=== PATIENT | female | born 1970 | race Caucasian/White ===

== ENCOUNTER 2018-02-04 21:07 | Emergency (ER) | payer OTHER ==
[2018-02-04] MEDS ORDERED: ASPIRIN 81 MG TABLET, CHEWABLE PO ONE (22:07)
--- NOTE | 2018-02-04 22:09 | ER Document Report ---
ED Medical Screen (RME) - General Chief Complaint: Chest Pain Stated Complaint: CHEST PAIN Time Seen by Provider: 02/04/18 22:07 Mode of Arrival: Ambulatory Information source: Patient Notes: Patient is a 47-year-old female who presents with chief complaint of chest pressure. Patient reports the pain has been intermittent over the last 36 hours. Patient reports that he first started after having a argument with her roommate, patient thought it was just anxiety. Patient did call EMS yesterday afternoon at which point he came to her house evaluated her and she opted to not be transported to the emergency department. Patient reports that today the chest pain has been more persistent and higher in intensity. Patient describes the pain as a chest pressure with radiation to her right arm with associated nausea and diaphoresis. Patient reports that she always feels short of breath. Patient does have a history of a STEMI approximately 1-2 years ago. 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 Exam: Lung sounds clear to auscultation bilaterally. No tenderness on palpation to chest wall. Heart sounds S1-S2 present no ectopy noted. He just put a whole protocol for I have greeted and performed a rapid initial assessment of this patient. A comprehensive ED assessment and evaluation of the patient, analysis of test results and completion of the medical decision making process will be conducted by additional ED providers. Dictation of this chart was performed using voice recognition software; therefore, there may be some unintended grammatical errors. TRAVEL OUTSIDE OF THE [place] IN LAST 30 DAYS: No - Related Data Allergies/Adverse Reactions: acetaminophen [From Tylenol] Allergy (Verified 02/04/18 21:13) ciprofloxacin [From Cipro] Allergy (Verified 02/04/18 21:13) doxycycline Allergy (Verified 02/04/18 21:13) erythromycin base Allergy (Verified 02/04/18 21:13) Penicillins Allergy (Verified 02/04/18 21:13)
--- NOTE | 2018-02-04 22:28 | EKG REPORT ---
SEVERITY:- ABNORMAL ECG - SINUS RHYTHM PAIRED VENTRICULAR PREMATURE COMPLEXES NONSPECIFIC INTRAVENTRICULAR CONDUCTION DELAY : Confirmed by: Cesilia Shepherd MD 04-Feb-2018 22:27:23
--- NOTE | 2018-02-04 22:38 | RADIOLOGY REPORT (SQ) ---
EXAM DESCRIPTION: CHEST SINGLE VIEW COMPLETED DATE/TIME: 02/04/2018 10:20 pm REASON FOR STUDY: chest pressure COMPARISON: None. EXAM PARAMETERS: NUMBER OF VIEWS: One view. TECHNIQUE: Single frontal radiographic view of the chest acquired. RADIATION DOSE: NA LIMITATIONS: None. FINDINGS: LUNGS AND PLEURA: No opacities, masses or pneumothorax. No pleural effusion. MEDIASTINUM AND HILAR STRUCTURES: No masses. Contour normal. HEART AND VASCULAR STRUCTURES: Heart size is borderline. There is no evidence of pulmonary edema. BONES: No acute findings. HARDWARE: None in the chest. OTHER: No other significant finding. IMPRESSION: Borderline cardiomegaly without pulmonary edema. TECHNICAL DOCUMENTATION: JOB ID: [id number] [employer]- All Rights Reserved Reading location - IP/workstation name: [email or web address]
[2018-02-04 23:20] LABS: ABSOLUTE BASOPHILS # (AUTO) 0.1 10^3/uL (0.0-0.2); ABSOLUTE EOSINOPHILS # (AUTO) 0.2 10^3/uL (0.0-0.6); ABSOLUTE LYMPHOCYTES (AUTO) 1.7 10^3/uL (0.5-4.7); ABSOLUTE MONOCYTES (AUTO) 0.4 10^3/uL (0.1-1.4); BASOPHILS % (AUTO) 0.7 % (0-2); EOSINOPHILS % (AUTO) 3.1 % (0-6); HEMATOCRIT 38.5 % (36.0-47.0); HEMOGLOBIN 12.9 g/dL (12.0-15.5); MEAN CORPUSCULAR HEMOGLOBIN 28.9 pg (27.0-33.4); MEAN CORPUSCULAR HGB CONC 33.5 g/dL (32.0-36.0); MEAN CORPUSCULAR VOLUME 86 fl (80-97); MONOCYTES % (AUTO) 5.4 % (3-13); PLATELET COUNT 165 10^3/uL (150-450); RED BLOOD COUNT 4.47 10^6/uL (3.72-5.28); RED CELL DISTRIBUTION WIDTH 14.7 % (11.5-14.0); SEGMENTED NEUTROPHILS % (AUTO) 67.8 % (42-78); TOTAL CELLS COUNTED % (AUTO) 100 %; WHITE BLOOD COUNT 7.4 10^3/uL (4.0-10.5)
[2018-02-04 23:34] LABS: ALANINE AMINOTRANSFERASE 27 U/L (9-52); ALBUMIN 3.9 g/dL (3.5-5.0); ALKALINE PHOSPHATASE 83 U/L (38-126); ANION GAP 13 (5-19); ASPARTATE AMINO TRANSFERASE 34 U/L (14-36); BILIRUBIN,DIRECT 0.3 mg/dL (0.0-0.4); BILIRUBIN,TOTAL 0.6 mg/dL (0.2-1.3); BLOOD UREA NITROGEN 15 mg/dL (7-20); CARBON DIOXIDE 23 mmol/L (22-30); CHLORIDE 104 mmol/L (98-107); CREATINE KINASE 151 U/L (30-135); GLUCOSE 191 mg/dL (75-110); POTASSIUM 4.4 mmol/L (3.6-5.0); SODIUM 140.3 mmol/L (137-145); TOTAL PROTEIN 7.3 g/dL (6.3-8.2)
[2018-02-04 23:44] LABS: CREATINE KINASE MB 4.42 ng/mL (<4.55)
[2018-02-04 23:51] LABS: TROPONIN I 0.873 ng/mL
--- NOTE | 2018-02-05 00:02 | ER Document Report ---
ED General - General Mode of Arrival: Ambulatory TRAVEL OUTSIDE OF THE [place] IN LAST 30 DAYS: No <ALE LION - Last Filed: 02/05/18 03:12> <SUSAN GALLEGOS - Last Filed: 02/05/18 12:36> - General Chief Complaint: Chest Pain Stated Complaint: CHEST PAIN Time Seen by Provider: 02/04/18 22:07 Notes: Patient is a 47-year-old female who presents with complaint of chest pain. Chest pain is substernal. She does have some radiation into her left shoulder and into her back. Said this started yesterday if she got an argument with a friend on the phone. Pain continued throughout the night and into today and therefore she came to the ER. She does have previous history of NV in 2003. She had a heart cath at that time. This was done at [facility] and was [facility]. She moved here several months ago. She does not have a doctor since she moved here. She does have diabetes. She has gained more weight. She says she is still having some chest pain. Cardiac enzymes and EKG were done upfront. Her troponin is elevated. EKG shows some PVCs. Patient says she does have a history of intermittent bigeminy which is normal for her. She denies any recent bleeding. No abdominal pain. No difficulty breathing. No other complaints at this time. (ALE LION) - Related Data Allergies/Adverse Reactions: acetaminophen [From Tylenol] Allergy (Verified 02/04/18 21:13) ciprofloxacin [From Cipro] Allergy (Verified 02/04/18 21:13) doxycycline Allergy (Verified 02/04/18 21:13) erythromycin base Allergy (Verified 02/04/18 21:13) Penicillins Allergy (Verified 02/04/18 21:13) Past Medical History - General Information source: Patient - Social History Smoking Status: Former Smoker Frequency of alcohol use: None Drug Abuse: None Family History: Reviewed & Not Pertinent Patient has suicidal ideation: No Patient has homicidal ideation: No Renal/ Medical History: Denies: Hx Peritoneal Dialysis <ALE LION - Last Filed: 02/05/18 03:12> Review of Systems <ALE LION - Last Filed: 02/05/18 03:12> <SUSAN GALLEGOS - Last Filed: 02/05/18 12:36> - Review of Systems Notes: My Normal Review Basic REVIEW OF SYSTEMS: CONSTITUTIONAL : Denies fever, chills, or sweats. Denies recent illness. EENT: Denies eye, ear, throat, or mouth pain or symptoms. Denies nasal or sinus congestion. CARDIOVASCULAR: has chest pain. RESPIRATORY: Denies cough, cold, or chest congestion. Denies shortness of breath, difficulty breathing, or wheezing. GASTROINTESTINAL: Denies abdominal pain. Denies nausea, vomiting, or diarrhea. Denies constipation. Last BM: MUSCULOSKELETAL: Denies neck or back pain or joint pain or swelling. SKIN: Denies rash or skin lesions. NEUROLOGICAL: Denies altered mental status or loss of consciousness. Denies headache. Denies weakness or paralysis or loss of use of either side. Denies problems with gait or speech. Denies sensory or motor loss. ALL OTHER SYSTEMS REVIEWED AND NEGATIVE. (ALE LION) Physical Exam <ALE LION - Last Filed: 02/05/18 03:12> <SUSAN GALLEGOS - Last Filed: 02/05/18 12:36> - Vital signs Vitals: BP 157/73 H 02/05/18 00:06 - Notes Notes: General Appearance: Well nourished, alert, cooperative, no acute distress, no obvious discomfort. Well appearing. Vitals: reviewed, See vital signs table. Head: no swelling or tenderness to the head Eyes: PERRL, EOMI, Conjuctiva clear Mouth: No decreasd moisture Neck: Supple, no neck tenderness, No neck swelling Lungs: No wheezing, No rales, No rhonci, No accessory muscle use, good air exchange bilaterally. Heart: Normal rate, Regular rythm, No murmur, no rub Abdomen: Normal BS, soft, No rigidity, No abdominal tenderness, No guarding, no rebound, no abdominal masses, no organomegaly Extremities: strength 5/5 in all extremities, good pulses in all extremities, no swelling or tenderness in the extremities, no edema. Skin: warm, dry, appropriate color, no rash Neuro: speech clear, oriented x 3, normal affect, responds appropriately to questions. (ALE LION) Course - Laboratory Result Diagrams: 02/04/18 23:06 02/04/18 23:06 <ALE LION - Last Filed: 02/05/18 03:12> - Laboratory Result Diagrams: 02/04/18 23:06 02/04/18 23:06 <SUSAN GALLEGOS - Last Filed: 02/05/18 12:36> - Re-evaluation Re-evalutation: 02/05/18 03:06 I initially called [facility]. They are on diversion and said they cannot take the patient. I therefore called [facility] spoke with Dr. James Bermudez agrees to accept the patient and the patient will be placed on a waiting list. Patient currently is pain-free and doing well. 02/05/18 03:12 (ALE LION) 02/05/18 12:35 Patient is stable at this time for transport. Repeat EKG was performed which showed bigeminy. Patient reports that she knows she has bigeminy and has had it for years. She is sitting upright. Currently not in bigeminy. Heart rate in the 60s. In my opinion patient is stable for transport at this time. ( SUSAN GALLEGOS) - Vital Signs Vital signs: Temp Pulse Resp BP Pulse Ox 98.4 F 12 149/88 H 97 02/05/18 10:01 02/05/18 11:01 02/05/18 11:00 02/05/18 11:01 - Laboratory Laboratory results interpreted by me: 02/04/18 02/04/18 02/04/18 23:06 23:06 23:06 RDW 14.7 H Glucose 191 H Creatine Kinase 151 H NT-Pro-B Natriuret Pep 1250 H - EKG Interpretation by Me Additional EKG results interpreted by me: 02/05/18 00:01 EKG is reviewed and interpreted by me. EKG shows sinus rhythm with rate of [address] segment elevation or depression. No ischemic T-wave inversions. Patient does have multiple PVCs. VT interval is within normal range. QRS duration QTc intervals are prolonged. Old EKG for comparison is unavailable at this time. 02/05/18 03:12 EKG #2 is reviewed and interpreted by me. EKG sinus rhythm with rate 54 bpm. No PVCs. No ST segment elevation or depression. No ischemic T-wave inversions. VT interval is within normal range. QRS duration QTc intervals are prolonged. (ALE LION) Discharge <ALE LION - Last Filed: 02/05/18 03:12> <SUSAN GALLEGOS - Last Filed: 02/05/18 12:36> - Discharge Clinical Impression: NSTEMI (non-ST elevated myocardial infarction) Condition: Stable Disposition: [facility]
[2018-02-05] MEDS ORDERED: NITROGLYCERIN 2% OINTMENT 1 GM PACKET TP ONE (00:12)
[2018-02-05] MEDS: ENOXAPARIN SODIUM INJ 150 MG/1 ML DISP.SYRIN SUBCUT SCH ×2 (00:40→11:02)
[2018-02-05] MEDS ORDERED: MORPHINE SULFATE 10 MG/ML INJ IV ONE (02:18)
[2018-02-05 13:33] VITALS: BP 162/79
--- NOTE | 2018-02-05 13:44 | EKG REPORT ---
SEVERITY:- ABNORMAL ECG - SINUS RHYTHM VENTRICULAR BIGEMINY NONSPECIFIC T ABNORMALITIES, LATERAL LEADS : Confirmed by: Cesilia Shepherd MD 05-Feb-2018 13:43:51
--- NOTE | 2018-02-05 13:45 | EKG REPORT ---
SEVERITY:- ABNORMAL ECG - SINUS RHYTHM NONSPECIFIC INTRAVENTRICULAR CONDUCTION DELAY : Confirmed by: Cesilia Shepherd MD 05-Feb-2018 13:43:54
== END 2018-02-05 12:23 | disposition short-term general hospital (02) ==
LOC: ER 21:07
DX: I21.4 Non-ST elevation (NSTEMI) myocardial infarction (principal); R07.9 Chest pain, unspecified; I25.2 Old myocardial infarction
CPT/HCPCS: 93005 ×2; 99285; 96372; 96374; 36415; 82553; 82550; 85025; 80053; 84484; 83880; 71045; 93010 ×2; J3490; J2270

== ENCOUNTER 2018-10-15 09:52 | Emergency (ER) | payer OTHER ==
--- NOTE | 2018-10-15 11:19 | ER Document Report ---
ED Fall - General Chief Complaint: Fall Injury Stated Complaint: FALL Time Seen by Provider: 10/15/18 11:01 Mode of Arrival: Ambulatory Information source: Patient Notes: 48-year-old female presents to ED for complaint of pain to her right lateral ribs and hip since Sunday. She states the ribs are much more painful than the hip. She states on Sunday she fell off her daughter's porch landing on the side. There is gross bruising noted to the right hip. Patient is on Plavix. Patient states she had a heart attack last year with a heart cath but no stents they told her there was no blockage that is while she is on Plavix. Is alert oriented respirations regular and unlabored speaking in full sentences walks with a even steady gait but does complain of a lot of pain to the right lateral and posterior ribs. TRAVEL OUTSIDE OF THE [place] IN LAST 30 DAYS: No - HPI Occurred: Other - Sunday Where: Outdoors, Other - Daughter's house Context: Fell from height - Fell off the porch when she slipped in the wet porch Associated symptoms: None Location of injury/pain: Other - Right lateral and posterior ribs Quality of pain: Sharp Severity: Moderate Pain Level: 3 - Related data Allergies/Adverse Reactions: acetaminophen [From Tylenol] Allergy (Verified 10/15/18 09:53) ciprofloxacin [From Cipro] Allergy (Verified 10/15/18 09:53) doxycycline Allergy (Verified 10/15/18 09:53) erythromycin base Allergy (Verified 10/15/18 09:53) Penicillins Allergy (Verified 10/15/18 09:53) Past Medical History - General Information source: Patient - Social History Smoking Status: Former Smoker Frequency of alcohol use: None Drug Abuse: None Lives with: Family Family History: Reviewed & Not Pertinent Patient has suicidal ideation: No Patient has homicidal ideation: No - Past Medical History Cardiac Medical History: Reports: Hx Heart Attack, Hx Hypercholesterolemia, Hx Hypertension Pulmonary Medical History: Reports: Hx COPD, Other - Sarcoidosis EENT Medical History: Reports: None Neurological Medical History: Reports: None, Other - Neuropathy, vertigo Endocrine Medical History: Reports: Hx Diabetes Mellitus Type 2 Renal/ Medical History: Reports: None Malignancy Medical History: Reports: None GI Medical History: Reports: None Musculoskeletal Medical History: Reports None Skin Medical History: Reports None Psychiatric Medical History: Reports: Hx Depression Traumatic Medical History: Reports: None Infectious Medical History: Reports: None Past Surgical History: Reports: Hx Appendectomy, Hx Cardiac Catheterization, Hx Section, Hx Cholecystectomy - Immunizations Immunizations up to date: Yes Hx Diphtheria, Pertussis, Tetanus Vaccination: Yes Review of Systems - Review of Systems Constitutional: No symptoms reported EENT: No symptoms reported Cardiovascular: No symptoms reported Respiratory: Other - Right lateral and posterior rib pain after a fall on Sunday Gastrointestinal: No symptoms reported Genitourinary: No symptoms reported Female Genitourinary: No symptoms reported Musculoskeletal: Other - Right hip pain and bruising after a fall on Sunday Skin: No symptoms reported Hematologic/Lymphatic: No symptoms reported Neurological/Psychological: No symptoms reported -: Yes All other systems reviewed and negative Physical Exam - Vital signs Vitals: Temp Pulse Resp BP Pulse Ox 98.2 F 65 16 123/72 97 10/15/18 10:04 10/15/18 10:04 10/15/18 10:04 10/15/18 10:04 10/15/18 10:04 Interpretation: Normal - General General appearance: Appears well, Alert - HEENT Head: Normocephalic, Atraumatic Eyes: Normal Pupils: PERRL - Respiratory Respiratory status: No respiratory distress. No: Respiratory distress, Depressed respirations Chest status: Tender, Pain on movement, Pain with cough, Pain with deep breathing Breath sounds: Normal. No: Nonproductive cough, Productive cough, Rales, Rhonchi, Stridor, Wheezing, Other Chest palpation: Normal - Cardiovascular Rhythm: Regular Heart sounds: Normal auscultation Murmur: No - Abdominal Inspection: Normal Distension: No distension Bowel sounds: Normal Tenderness: Nontender Organomegaly: No organomegaly - Back Back: Normal, Nontender - Extremities General upper extremity: Normal inspection, Nontender, Normal color, Normal ROM, Normal temperature General lower extremity: Normal inspection, Nontender, Normal color, Normal ROM, Normal temperature, Normal weight bearing. No: Maryjo's sign - Neurological Neuro grossly intact: Yes Cognition: Normal Orientation: AAOx4 Eleno Coma Scale Eye Opening: Spontaneous Newberg Coma Scale Verbal: Oriented Newberg Coma Scale Motor: Obeys Commands Eleno Coma Scale Total: 15 Speech: Normal Motor strength normal: LUE, RUE, LLE, RLE Sensory: Normal - Psychological Associated symptoms: Normal affect, Normal mood - Skin Skin Temperature: Warm Skin Moisture: Dry Skin Color: Normal Course - Vital Signs Vital signs: Temp Pulse Resp BP Pulse Ox 98.0 F 65 18 127/69 H 100 10/15/18 12:09 10/15/18 12:09 10/15/18 12:09 10/15/18 12:09 10/15/18 12:09 - Diagnostic Test Radiology reviewed: Image reviewed, Reports reviewed Discharge - Discharge Clinical Impression: Contusion right lateral ribs Contusion of right hip Qualifiers: Encounter type: initial encounter Qualified Code(s): S70.01XA - Contusion of right hip, initial encounter Condition: Stable Disposition: HOME, SELF-CARE Instructions: Family Physicians / Practices Additional Instructions: CONTUSION: Your injury has resulted in a contusion -- a crushing of the deep tissues. No injury to important structures was detected during the physician's exam. Contusions vary in the amount of pain they cause, and in the length of time required for healing. Typically, the area will become bruised, and will remain painful to touch for two or three weeks. However, most patients are back to working and playing within a few days. After the initial period of rest and cold-packs, your symptoms (together with the doctor's recommendations) will determine how rapidly you can get back to full activity. Usually this means "do what feels okay, but don't do things that hurt." If re-examination was recommended, it's important to follow up as instructed. Call the doctor or return any time if pain increases, if swelling becomes severe, if you develop numbness or weakness in an injured extremity, or if any other alarming symptoms occur. USE OF TYLENOL (ACETAMINOPHEN): Acetaminophen may be taken for pain relief or fever control. It's much safer than aspirin, offering a wider range of "safe" dosages. It is safe during . Some brand names are Tylenol, Panadol, Datril, Anacin 3, Tempra, and Liquiprin. Acetaminophen can be repeated every four hours. The following are maximum recommended dosages: WEIGHT Dose Drops Elixir Chewable(80mg) (LBS.) drprs=droppers tsp=teaspoon 6 40 mg 0.4 ml (1/2) 6-11 80 mg 0.8 ml (full) tsp 1 tab 12-16 120 mg 1 1/2 drprs 3/4 tsp 1 1/2 tabs 17-23 160 mg 2 drprs 1 tsp 2 tabs 24-30 240 mg 3 drprs 1 1/2 tsp 3 tabs 30-35 320 mg 2 tsp 4 tabs 36-41 360 mg 2 1/4 tsp 4 1/2 tabs 42-47 400 mg 2 1/2 tsp 5 tabs 48-53 480 mg 3 tsp 6 tabs 54-59 520 mg 3 1/4 tsp 6 1/2 tabs 60-64 560 mg 3 1/2 tsp 7 tabs 65-70 600 mg 3 3/4 tsp 7 1/2 tabs 71-76 640 mg 4 tsp 8 tabs 77-82 720 mg 4 1/2 tsp 9 tabs 83-88 800 mg 5 tsp 10 tabs >89 pounds or adults 650 mg to 900 mg Acetaminophen can be repeated every four hours. Maximum dose not to exceed 4000 mg a day. These maximum recommended dosages are slightly higher than the dosages written on the product container, but these dosages are very safe and below the toxic dosage for acetaminophen. ICE PACKS: Apply ice packs frequently against the painful area. Many different schedules are recommended, such as "20 minutes on, 20 minutes off" or "one hour ice, two hours rest." If you need to work, you may need to go longer between ice treatments. You should plan to have the area ice packed AT LEAST one fourth of the time. The ice should be applied over the wrap, tape, or splint, or over a layer of cloth -- not directly against the skin. Some ice bags have a built-in cloth and can be put directly on the skin. WARM PACKS: After approximately two days, apply gentle heat (such as a heating pad or hot water bottle) for about 20 to 30 minutes about every two hours -- at least four times daily. Warmth and elevation will help you make a more rapid recovery, and will ease the pain considerably. Do not use HOT heat, and never apply heat for longer than 30 minutes. The continuous heat can invisibly damage skin and muscles -- even when no burn is seen on the surface. Damaged muscles can make you MORE sore. MUSCLE RELAXERS: Muscle relaxing medications are usually prescribed for acute muscle spasm or injury to the neck and back. They are often combined with antiinflammatory pain medication for increased relief. You may stop the muscle relaxer when the pain and stiffness have improved. Start the medication again if spasms recur. Muscle relaxers may cause drowsiness, especially with the first dose. Do not operate machinery or drive while under the effects of the medication. Most muscle relaxers last up to 24 hours. Do not combine the medication with alcohol. FOLLOW-UP CARE: If you have been referred to a physician for follow-up care, call the physicians office for an appointment as you were instructed or within the next two days. If you experience worsening or a significant change in your symptoms, notify the physician immediately or return to the Emergency Department at any time for re-evaluation. Prescriptions: Methocarbamol [Robaxin 500 mg Tablet] 500 mg PO BID PRN #14 tablet PRN Reason: For Pain Forms: Return to Work
--- NOTE | 2018-10-15 11:49 | RADIOLOGY REPORT (SQ) ---
EXAM DESCRIPTION: RIBS RIGHT W/PA CHEST COMPLETED DATE/TIME: 10/15/2018 11:33 am REASON FOR STUDY: fell sunday increased pain right lateral ribs COMPARISON: None. TECHNIQUE: Frontal view of the chest and additional views of the right ribs acquired. NUMBER OF VIEWS: Five views LIMITATIONS: None. FINDINGS: FRONTAL CXR: No pneumothorax. No pleural effusion. No atelectasis or infiltrates. RIBS: No displaced rib fractures. No lytic or blastic bony lesions. OTHER: No other significant finding. IMPRESSION: NO PNEUMOTHORAX. NO DISPLACED RIB FRACTURES. COMMENT: SITE OF TRAUMA/COMPLAINT MARKED/STAMP COMPLETED: No TECHNICAL DOCUMENTATION: JOB ID: [id number] [employer]- All Rights Reserved Reading location - IP/workstation name: [email or web address]
[2018-10-15 12:11] VITALS: BP 127/69
== END 2018-10-15 12:09 | disposition home or self-care (01) ==
LOC: ER 09:52
DX: S20.20XA Contusion of thorax, unspecified, initial encounter (principal); S70.01XA Contusion of right hip, initial encounter; W17.89XA Other fall from one level to another, initial encounter; Y92.008 Other place in unspecified non-institutional (private) residence as the place of occurrence of the external cause; I10 Essential (primary) hypertension; J44.9 Chronic obstructive pulmonary disease, unspecified; E11.9 Type 2 diabetes mellitus without complications; I25.2 Old myocardial infarction; Z79.02 Long term (current) use of antithrombotics/antiplatelets; Z88.6 Allergy status to analgesic agent; Z88.1 Allergy status to other antibiotic agents; Z88.0 Allergy status to penicillin; Z87.891 Personal history of nicotine dependence
CPT/HCPCS: 99283